=== PATIENT | male | born 1945 | race Caucasian/White ===

== ENCOUNTER 2021-04-29 12:10 | Emergency (ER) | payer MEDICARE, MEDICAID ==
[2021-04-29 13:25] LABS: CHLORIDE,CL 102 mmol/L (98-107); SODIUM,NA 137 mmol/L (136-145)
[2021-04-29 13:37] LABS: ACETAMINOPHEN 0 ug/ml (10-30); ANION GAP 16.6 mmol/L (5-15)
--- NOTE | 2021-04-29 14:04 | EDM.PDOCBH ---
ED HPI GENERAL MEDICAL PROBLEM - General Chief Complaint: Behavioral/Psych Stated Complaint: Aggitation Time Seen by Provider: 04/29/21 12:40 Source of Information: Reports: Patient, [facility] Records - History of Present Illness INITIAL COMMENTS - FREE TEXT/NARRATIVE: Patient comes to the emergency department today with the police from the local jail center due to concerns of agitation. This patient was a longstanding history of schizophrenia. Today at the jail became somewhat confrontational with staff and pounded his fist on the wall and the staff called the police. The police were able to easily and quickly de-escalate the situation. The patient has not had no recent change in his medications. He was sent to the emergency department by report from the jail for medical clearance and possibly transfer to the [facility]. He has not had any recent outbursts or agitation aggression or assaults at the jail per the jail report. Talking with the patient he relates that today he was at the jail and he only wanted to do was take a nap. They were forcing him to go to lunch and he got upset and he pounded his fist on the wall twice. He did not injure his hand. He complains of being tired and has no other complaints. He denies any homicidal or suicidal ideation. Lower Back Pain Score (Numeric/FACES): 3 Social & Family History - Family History Family Medical History: Unobtainable - Tobacco Use Tobacco Use Status *Q: Never Tobacco User - Recreational Drug Use Recreational Drug Use: No ED ROS GENERAL - Review of Systems Review Of Systems: Comprehensive ROS is negative, except as noted in HPI. ED EXAM, BEHAVIORAL HEALTH - Physical Exam Exam: See Below Text/Narrative:: This is a very pleasant happy interactive 75-year-old male who sits and visits with me very appropriately. There is no confusion there is no hallucinations delusions. There is no aggression anxiety. There is no homicidal or suicidal ideation. He is very pleasant and interactive. Exam Limited By: No Limitations General Appearance: Alert, WD/WN, No Apparent Distress Eye Exam: Bilateral Eye: EOMI Ears: Normal External Exam Nose: Normal Inspection Throat/Mouth: Normal Inspection Head: Atraumatic Neck: Normal Inspection, Supple Respiratory/Chest: No Respiratory Distress Cardiovascular: Normal Peripheral Pulses GI/Abdominal: Normal Bowel Sounds Back Exam: Normal Inspection Extremities: Normal Inspection Neurological: Alert, CN II-XII Intact, Normal Cognition, Normal Gait, No Motor/Sensory Deficits Psychiatric: Alert, Normal Affect, Normal Cognition, Normal Mood, Oriented Skin Exam: Warm, Dry, Intact, Normal color, No rash COURSE, BEHAVIORAL HEALTH COMP - Course Vital Signs: Last Vital Signs Temp 97.8 F 04/29/21 12:10 Pulse 90 04/29/21 12:10 Resp 18 04/29/21 12:10 BP 113/75 04/29/21 12:10 Pulse Ox 99 04/29/21 12:10 Orders, Labs, Meds: Laboratory Tests 04/29/21 04/29/21 04/29/21 Range/Units 12:45 12:45 12:45 WBC 6.4 (4.0-10.0) x10^3/uL RBC 4.20 L (4.5-6.0) x10^6/uL Hgb 12.5 L (14.0-18.0) g/dL Hct 37.2 L (40.0-52.0) % MCV 88.6 (78.0-93.0) fL MCH 29.8 (26.0-32.0) pg MCHC 33.6 (32.0-36.0) g/dL RDW Coeff of Jose 13.1 (10.0-15.0) % Plt Count 199 (130-400) x10^3/uL Immature Gran % (Auto) 0.20 (0.00-0.43) % Neut % (Auto) 49.8 L (50.0-80.0) % Lymph % (Auto) 36.9 (25.0-50.0) % [place] % (Auto) 10.9 (2.0-11.0) % Eos % (Auto) 1.3 (0.0-4.0) % Baso % (Auto) 0.9 (0.2-1.2) % Neut # (Auto) 3.2 (1.8-7.7) x10^3/uL Lymph # (Auto) 2.4 (1.0-4.8) x10^3/uL [place] # (Auto) 0.7 (0.0-0.8) x10^3/uL Eos # (Auto) 0.1 (0.0-0.5) x10^3/uL Baso # (Auto) 0.1 (0.0-0.2) x10^3/uL Immature Gran # (Auto) 0.01 (0.00-0.07) x10^3/uL Sodium 137 (136-145) mmol/L Potassium 4.6 (3.5-5.1) mmol/L Chloride 102 (98-107) mmol/L Carbon Dioxide 23 (21-32) mmol/L Anion Gap 16.6 H (5-15) mmol/L BUN 24 H (7-18) mg/dL Creatinine 1.4 H (0.70-1.30) mg/dL Est Cr Clr Drug Dosing 51.58 mL/min Estimated GFR (MDRD) 50 Glucose 97 (70-99) mg/dL Calcium 9.3 (8.5-10.1) mg/dL Corrected Calcium 9.9 (8.5-10.1) mg/dL Magnesium 1.8 (1.8-2.4) mg/dL Total Bilirubin 0.2 (0.2-1.0) mg/dL AST 20 (15-37) U/L ALT 33 (16-63) U/L Alkaline Phosphatase 59 (46-116) U/L Total Protein 7.5 (6.4-8.2) g/dL Albumin 3.3 L (3.4-5.0) g/dL Globulin 4.2 Albumin/Globulin Ratio 0.79 TSH, Ultra Sensitive 6.058 H (0.358-3.74) uIU/mL Urine Color (YELLOW) Urine Appearance (CLEAR) Urine pH (5.0-8.0) Ur Specific [place] Urine Protein (NEGATIVE) mg/dL Urine Glucose (UA) (NEGATIVE) mg/dL Urine Ketones (NEGATIVE) mg/dL Urine Occult Blood (NEGATIVE) Urine Nitrite (NEGATIVE) Urine Bilirubin (NEGATIVE) Urine Urobilinogen (0.2) EU/dL Ur Leukocyte Esterase (NEGATIVE) Salicylates 1.8 L (2.8-20(Therapeutic)) mg/dL Acetaminophen 0 L (10-30) ug/ml Ethyl Alcohol < 3 (0-3) mg/dL 04/29/21 Range/Units 13:49 WBC (4.0-10.0) x10^3/uL RBC (4.5-6.0) x10^6/uL Hgb (14.0-18.0) g/dL Hct (40.0-52.0) % MCV (78.0-93.0) fL MCH (26.0-32.0) pg MCHC (32.0-36.0) g/dL RDW Coeff of Jose (10.0-15.0) % Plt Count (130-400) x10^3/uL Immature Gran % (Auto) (0.00-0.43) % Neut % (Auto) (50.0-80.0) % Lymph % (Auto) (25.0-50.0) % [place] % (Auto) (2.0-11.0) % Eos % (Auto) (0.0-4.0) % Baso % (Auto) (0.2-1.2) % Neut # (Auto) (1.8-7.7) x10^3/uL Lymph # (Auto) (1.0-4.8) x10^3/uL [place] # (Auto) (0.0-0.8) x10^3/uL Eos # (Auto) (0.0-0.5) x10^3/uL Baso # (Auto) (0.0-0.2) x10^3/uL Immature Gran # (Auto) (0.00-0.07) x10^3/uL Sodium (136-145) mmol/L Potassium (3.5-5.1) mmol/L Chloride (98-107) mmol/L Carbon Dioxide (21-32) mmol/L Anion Gap (5-15) mmol/L BUN (7-18) mg/dL Creatinine (0.70-1.30) mg/dL Est Cr Clr Drug Dosing mL/min Estimated GFR (MDRD) Glucose (70-99) mg/dL Calcium (8.5-10.1) mg/dL Corrected Calcium (8.5-10.1) mg/dL Magnesium (1.8-2.4) mg/dL Total Bilirubin (0.2-1.0) mg/dL AST (15-37) U/L ALT (16-63) U/L Alkaline Phosphatase (46-116) U/L Total Protein (6.4-8.2) g/dL Albumin (3.4-5.0) g/dL Globulin Albumin/Globulin Ratio TSH, Ultra Sensitive (0.358-3.74) uIU/mL Urine Color Light yellow (YELLOW) Urine Appearance Clear (CLEAR) Urine pH 5.5 (5.0-8.0) Ur Specific [place] 1.010 Urine Protein Negative (NEGATIVE) mg/dL Urine Glucose (UA) Negative (NEGATIVE) mg/dL Urine Ketones Negative (NEGATIVE) mg/dL Urine Occult Blood Negative (NEGATIVE) Urine Nitrite Negative (NEGATIVE) Urine Bilirubin Negative (NEGATIVE) Urine Urobilinogen 0.2 (0.2) EU/dL Ur Leukocyte Esterase Negative (NEGATIVE) Salicylates (2.8-20(Therapeutic)) mg/dL Acetaminophen (10-30) ug/ml Ethyl Alcohol (0-3) mg/dL Re-Assessment/Re-Exam: The patient's laboratory evaluation is rather unremarkable. There is no medical emergencies identified at this time to account for the very brief agitated episode where he pounded his fist on the wall twice. He is not hallucinating there is no homicidal suicidal ideation. At this time the patient is medically cleared to return back to the [facility]. I do not feel that he needs any screening by the [facility] as there is no concerns at this time. Departure - Departure Time of Disposition: 16:04 Disposition: DC/Tfer to [facility] Clinical Impression: Schizophrenia Qualifiers: Schizophrenia type: other Qualified Code(s): F20.89 - Other schizophrenia - Discharge Information Referrals: Ivania Mejía MD [Primary Care Provider] - Forms: ED Department Discharge Additional Instructions: Continue previous medications. Follow up with PCP as needed. Sepsis Event Note (ED) - Evaluation Sepsis Screening Result: No Definite Risk - Focused Exam Vital Signs: Vital Signs Temp Pulse Resp BP Pulse Ox 04/29/21 12:10 97.8 F 90 18 113/75 99
== END 2021-04-29 14:53 ==
LOC: VM.ED 12:10
DX: F20.89 Other schizophrenia (principal)
CPT/HCPCS: 36415; 80053; 80143; 80179; 80307; 81003; 83735; 84443; 85025; 99283; 99285

== ENCOUNTER 2021-10-18 04:09 | Emergency (ER) | payer MEDICARE, MEDICAID ==
[2021-10-18] MEDS ORDERED: OLANZapine 10 MG Vial IM ONE (04:20)
[2021-10-18 05:26] LABS: ANION GAP 15.6 mmol/L (5-15)
== END 2021-10-18 06:30 ==
LOC: VM.ED 04:09
DX: R07.89 Other chest pain (principal); F23 Brief psychotic disorder; F20.89 Other schizophrenia; Z88.5 Allergy status to narcotic agent; Z88.8 Allergy status to other drugs, medicaments and biological substances
CPT/HCPCS: 36415; 80053; 84484; 85025; 96372; 99284; 99285; J3490

== ENCOUNTER 2022-06-29 18:06 | Emergency (ER) | payer MEDICARE, MEDICAID ==
[2022-06-29] MEDS ORDERED: Sodium Chloride 0.9% 10 ML Syringe FLUSH PRN (18:48)
[2022-06-29 19:38] LABS: ANION GAP 11.3 mmol/L (5-15)
[2022-06-29] MEDS: Levalbuterol HCl 1.25 MG/0.5 ML Neb NEB ONE (20:05)
[2022-06-29 20:36] LABS: CORONAVIRUS COVID-19 NAA NEGATIVE (NEGATIVE); RESPIRATORY SYNCYTIAL VIR NAA NEGATIVE (NEGATIVE)
== END 2022-06-29 21:40 ==
LOC: VM.ED 18:06
DX: J96.02 Acute respiratory failure with hypercapnia (principal); E78.00 Pure hypercholesterolemia, unspecified; I10 Essential (primary) hypertension; J44.9 Chronic obstructive pulmonary disease, unspecified; E11.9 Type 2 diabetes mellitus without complications; E66.9 Obesity, unspecified; Z68.39 Body mass index [BMI] 39.0-39.9, adult; Z88.5 Allergy status to narcotic agent; Z88.8 Allergy status to other drugs, medicaments and biological substances; Z79.4 Long term (current) use of insulin; Z79.899 Other long term (current) drug therapy; Z20.822 Contact with and (suspected) exposure to COVID-19
CPT/HCPCS: 0241U; 36415; 71045; 80053; 81003; 82803; 83605; 83880; 84145; 85025; 86140; 93005; 93010; 94640; 94760; 99284; 99285; J3490

== ENCOUNTER 2022-09-13 13:54 | Emergency (ER) | payer MEDICARE, MEDICAID ==
[2022-09-13] MEDS ORDERED: fentaNYL 50 MCG/ML SDV IVPUSH ONE (14:37)
[2022-09-13 14:50] LABS: ANION GAP 13.4 mmol/L (5-15); CHLORIDE,CL 100 mmol/L (98-107); ESTIMATED GFR 53 mL/min (>=60); SODIUM,NA 137 mmol/L (136-145)
[2022-09-13 15:08] LABS: CORONAVIRUS COVID-19 NAA NEGATIVE (NEGATIVE)
[2022-09-13 15:09] LABS: RESPIRATORY SYNCYTIAL VIR NAA NEGATIVE (NEGATIVE)
== END 2022-09-13 16:15 ==
LOC: VM.ED 13:54
DX: M25.512 Pain in left shoulder (principal); E78.00 Pure hypercholesterolemia, unspecified; I10 Essential (primary) hypertension; J44.9 Chronic obstructive pulmonary disease, unspecified; E11.9 Type 2 diabetes mellitus without complications; E66.9 Obesity, unspecified; Z68.30 Body mass index [BMI] 30.0-30.9, adult; Z88.8 Allergy status to other drugs, medicaments and biological substances; Z87.891 Personal history of nicotine dependence; Z20.822 Contact with and (suspected) exposure to COVID-19
CPT/HCPCS: 0241U; 36415; 71045; 80053; 82550; 83615; 83880; 84484; 85025; 86140; 93005; 93010; 94760; 96374; 99284; 99285-25; J3010

== ENCOUNTER 2022-09-14 08:44 | Inpatient (IN) | payer MEDICARE, MEDICAID ==
[~2022-09-14 08:44] MED LIST: SEMAGLUTIDE 0.5 MG/0.5 ML SQ SCH
[2022-09-14] MEDS ORDERED: HYDROmorphone 0.5 MG/0.5 ML Syringe IVPUSH ONE ×3 (09:44→11:55)
[2022-09-14] MEDS ORDERED: Sodium Chloride 0.9% 1,000 ML IV ONE (09:48)
[2022-09-14] MEDS ORDERED: cefTRIAXone 2 GM Vial IVPUSH ONE (09:48)
[2022-09-14 09:53] LABS: ANION GAP 19.5 mmol/L (5-15); CHLORIDE,CL 99 mmol/L (98-107); SODIUM,NA 137 mmol/L (136-145)
[2022-09-14 09:54] LABS: ESTIMATED GFR 39 mL/min (>=60)
[2022-09-14] MEDS ORDERED: Azithromycin 500 MG in Sodium Chloride 0.9% 250 ML IV ONE (11:58)
[2022-09-14] MEDS ORDERED: Acetaminophen/HYDROcodone 325-5 MG Tab PO SCH (13:00)
[2022-09-14] MEDS ORDERED: Acetaminophen 325 MG Tab PO PRN (13:20)
[2022-09-14] MEDS ORDERED: Albuterol/Ipratropium 3.0-0.5 MG/3 ML Neb Soln NEB PRN (13:20)
[2022-09-14] MEDS ORDERED: Ondansetron 4 MG Tab.DIS PO PRN (13:20)
[2022-09-14] MEDS ORDERED: Gabapentin 100 MG Cap PO SCH (15:00)
[2022-09-14] MEDS ORDERED: Bisacodyl 5 MG Tab PO PRN (16:11)
[2022-09-14] MEDS ORDERED: guaiFENesin 100 MG/5 ML Soln 10 ML UD Cup PO PRN (16:12)
[2022-09-14] MEDS ORDERED: Menthol 10%/Methyl Salicylate 15% 85 GM Tube TOP PRN (16:13)
[2022-09-14] MEDS ORDERED: Triamcinolone Acetonide 0.1% Crm 15 GM Tube TOP PRN (16:14)
[2022-09-14] MEDS ORDERED: Calcium Carbonate 750 MG Tab.Chew PO PRN (16:15)
[2022-09-14] MEDS ORDERED: Levalbuterol HCl 1.25 MG/0.5 ML Neb NEB PRN (16:19)
[2022-09-14] MEDS ORDERED: NICOTINE 4 MG PO PRN (16:21)
[2022-09-14] MEDS ORDERED: GUM PO PRN (16:21)
[2022-09-14] MEDS: Gabapentin 300 MG Cap PO SCH ×2 (16:54→20:16)
[2022-09-14] MEDS: Acetaminophen/HYDROcodone 325-5 MG Tab PO SCH (17:48)
[2022-09-14] MEDS: Insulin Lispro 100 Units/ML 3 ML Vial SUBCUT SCH (17:54)
[2022-09-14] MEDS ORDERED: SEMAGLUTIDE 0.5 MG SQ SCH (18:00)
[2022-09-14] MEDS ORDERED: PALIPERIDONE 156 MG IM SCH (18:00)
[2022-09-14] MEDS: Sodium Chloride 0.9% 1,000 ML IV SCH (20:14)
[2022-09-14] MEDS: Baclofen 10 MG Tab PO SCH (20:16)
[2022-09-14] MEDS: busPIRone 15 MG Tab PO SCH (20:16)
[2022-09-14] MEDS: QUEtiapine 100 MG Tab PO SCH (20:16)
[2022-09-14] MEDS: Budesonide 0.5 MG/2 ML Neb Susp NEB SCH (20:16)
[2022-09-14] MEDS: AUSTEDO 12 MG PO SCH (20:17)
[2022-09-14] MEDS: Arformoterol 15 MCG/2 ML Neb Soln NEB SCH (20:17)
[2022-09-14] MEDS: HYDROmorphone 0.5 MG/0.5 ML Syringe IVPUSH PRN ×2 (20:34→22:59)
[2022-09-14] MEDS ORDERED: Insulin Glarg,Human.Rec.Analog 100 Unit/ML SUBCUT SCH (21:00)
[2022-09-14] MEDS ORDERED: Divalproex Sodium 500 MG Tab.ER PO SCH (21:00)
[2022-09-14] MEDS ORDERED: Nortriptyline 10 MG Cap PO SCH (21:00)
[2022-09-14] MEDS ORDERED: atorvaSTATin 10 MG Tab PO SCH (21:00)
[2022-09-14] MEDS ORDERED: Divalproex Sodium Delayed-Release 250 MG Tab.CR PO SCH (21:00)
[2022-09-15] MEDS: Acetaminophen/HYDROcodone 325-5 MG Tab PO SCH ×4 (00:25→17:31)
[2022-09-15] MEDS: Sodium Chloride 0.9% 1,000 ML IV SCH ×3 (02:00→17:30)
[2022-09-15] MEDS: HYDROmorphone 0.5 MG/0.5 ML Syringe IVPUSH PRN ×3 (03:35→13:10)
[2022-09-15] MEDS ORDERED: Omeprazole 20 MG Cap.CR PO SCH (07:00)
[2022-09-15 07:17] LABS: ANION GAP 14.3 mmol/L (5-15)
[2022-09-15] MEDS: Budesonide 0.5 MG/2 ML Neb Susp NEB SCH (07:22)
[2022-09-15] MEDS: Arformoterol 15 MCG/2 ML Neb Soln NEB SCH (07:29)
[2022-09-15] MEDS: AUSTEDO 12 MG PO SCH (08:02)
[2022-09-15] MEDS: Insulin Lispro 100 Units/ML 3 ML Vial SUBCUT SCH ×4 (08:03→17:39)
[2022-09-15] MEDS: Baclofen 10 MG Tab PO SCH ×2 (08:04→12:55)
[2022-09-15] MEDS: busPIRone 15 MG Tab PO SCH (08:04)
[2022-09-15] MEDS: Gabapentin 300 MG Cap PO SCH ×2 (08:05→12:56)
[2022-09-15] MEDS: QUEtiapine 100 MG Tab PO SCH (08:05)
[2022-09-15] MEDS ORDERED: methylPREDNISolone Sodium Succinate 40 MG/1 ML SDV IVPUSH SCH (08:30)
[2022-09-15] MEDS ORDERED: Lisinopril 10 MG Tab PO SCH (09:00)
[2022-09-15] MEDS ORDERED: cefTRIAXone 2 GM Vial IVPUSH SCH (09:00)
[2022-09-15] MEDS ORDERED: amLODIPine 5 MG Tab PO SCH (09:00)
[2022-09-15] MEDS ORDERED: Azithromycin 500 MG in Sodium Chloride 0.9% 250 ML IV SCH (09:00)
[2022-09-15] MEDS ORDERED: metFORMIN 500 MG Tab PO SCH (09:00)
[2022-09-15] MEDS ORDERED: Divalproex Sodium 500 MG Tab.ER PO SCH (09:00)
[2022-09-15] MEDS ORDERED: Iopamidol 755 Mg/ML 100 ML Bottle IVPUSH ONE (11:31)
[2022-09-15] MEDS ORDERED: Enoxaparin 30 MG/0.3 ML Syringe SUBCUT SCH (21:00)
[2022-09-16] MEDS ORDERED: MOMETASONE TOP SCH (09:00)
== END 2022-09-15 19:25 | disposition short-term general hospital (02) | DRG 871 ==
LOC: VM.ED 08:44 → VM.MS 12:00
PROVIDERS: ADMIT Family Medicine; ATTEND Family Medicine
PROC: 3E03329 Introduction of Other Anti-infective into Peripheral Vein, Percutaneous Approach (ICD-10-PCS; principal; 2022-09-14)
PROC: 5A0935A Assistance with Respiratory Ventilation, Less than 24 Consecutive Hours, High Flow/Velocity Cannula (ICD-10-PCS; 2022-09-14)
DX: A41.9 Sepsis, unspecified organism (principal); J18.9 Pneumonia, unspecified organism; J96.01 Acute respiratory failure with hypoxia; J96.02 Acute respiratory failure with hypercapnia; J86.9 Pyothorax without fistula; J44.0 Chronic obstructive pulmonary disease with (acute) lower respiratory infection; Z68.41 Body mass index [BMI] 40.0-44.9, adult; R65.20 Severe sepsis without septic shock; E78.5 Hyperlipidemia, unspecified; I12.9 Hypertensive chronic kidney disease with stage 1 through stage 4 chronic kidney disease, or unspecified chronic kidney disease; E11.22 Type 2 diabetes mellitus with diabetic chronic kidney disease; N18.9 Chronic kidney disease, unspecified; E78.00 Pure hypercholesterolemia, unspecified; E66.9 Obesity, unspecified; R07.89 Other chest pain; K21.9 Gastro-esophageal reflux disease without esophagitis; F41.9 Anxiety disorder, unspecified; F20.9 Schizophrenia, unspecified; Z98.1 Arthrodesis status; Z98.890 Other specified postprocedural states; F31.9 Bipolar disorder, unspecified; Z79.4 Long term (current) use of insulin; Z99.81 Dependence on supplemental oxygen; Z88.8 Allergy status to other drugs, medicaments and biological substances; Z79.899 Other long term (current) drug therapy; Z87.891 Personal history of nicotine dependence
CPT/HCPCS: 36415; 71250; 71275; 80053; 80164; 82550; 82947; 83605; 83615; 84145; 84484; 85025; 85379; 85652; 86140; 87040; 93010; 94640; 94760; 96361; 96365; 96375; 96376; 99284; 99285-25; A9270-GY; J0456; J0696; J1170; J1815-GY; J2920; J3490; J7030; J7050; J7620-GY; Q9967